=== PATIENT | female | born 1980 | race American Indian/Alaskan Native ===

== ENCOUNTER 2020-03-17 05:48 | Observation (INO) | payer OTHER ==
--- NOTE | 2020-03-13 10:30 | Anesthesia Consultation ---
Anesthesia Consult and Med Hx Date of service: 03/17/20 - Airway Anesthetic Teeth Evaluation: Chipped ROM Head & Neck: Adequate Mental/Hyoid Distance: Adequate Mallampati Class: Class II Intubation Access Assessment: Good - Pre-Operative Health Status ASA Pre-Surgery Classification: ASA1 Proposed Anesthetic Plan: General Nerve Block: TAP if needed - Pulmonary Hx Smoking: No - Cardiovascular System Hx Hypertension: No - Central Nervous System Hx Psychiatric Problems: No - Endocrine Hx Renal Disease: No Hx Liver Disease: No Hx Non-Insulin Dependent Diabetes: No Hx Thyroid Disease: No - Hematic Hx Sickle Cell Disease: No - Other Systems Hx Cancer: No Hx Obesity: No
[2020-03-13 10:45] LABS: Basophils # (Auto) 0.1 K/mm3 (0.0-0.1); Basophils % (Auto) 0.9 % (0.0-1.8); Eosinophils # (Auto) 0.2 K/mm3 (0.0-0.4); Eosinophils % (Auto) 3.1 % (0.0-4.3); Hematocrit 38.3 % (30.3-42.9); Hemoglobin 13.5 gm/dl (10.1-14.3); Lymphocytes # (Auto) 1.7 K/mm3 (1.2-5.4); Lymphocytes % (Auto) 29.3 % (13.4-35.0); Mean Corpuscular HGB Conc 35 % (30-34); Mean Corpuscular Volume 92 fl (79-97); Monocytes # (Auto) 0.4 K/mm3 (0.0-0.8); Monocytes % (Auto) 6.7 % (0.0-7.3); Red Blood Count 4.15 M/mm3 (3.65-5.03); Red Cell Distribution Width 13.9 % (13.2-15.2)
[2020-03-13 10:54] LABS: Platelet Count 227 K/mm3 (140-440)
[2020-03-13 11:34] LABS: BUN/Creatinine Ratio 20; Blood Urea Nitrogen 12 mg/dL (7-17); Hemolysis Index 9
--- NOTE | 2020-03-16 10:25 | History and Physical Report ---
History of Present Illness Date of examination: 03/10/20 Date of admission: 03/17/2020 Chief complaint: fibroids, heavy bleeding, retained IUD History of present illness: Visit Type: Pre-Op CC: Pre op. History of Present Illness: pt presents for pre op visit: LAV H......................................................................Kaylee Dawkins March 10, 2020 9:40 AM Mask, Patient denies fever, cough, shortness of breath and exposure to COVID-19. Pt here for preop for LAVH withBS and IUD removal secondary to fibroids, menorrhagia. All risk/benefits/alternatives were d/w pt and questions were addressed and answered. Consent signed and placed on the chart. I also d/w risk of need for GEORGE. Pt expressed understanding. 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 of genital herpes: no Partner hx. of genital herpes: no Hx of STD: None Active Medications (reviewed today): IBUPROFEN 800 MG ORAL TABLET (IBUPROFEN) 1 po q6 hr prn pain MIRENA () Current Allergies (reviewed today): No known allergies Past Medical History: Reviewed history from 01/13/2020 and no changes required: Fibroids Past Surgical History: Reviewed history from 01/13/2020 and no changes required: negative Negative Past Surgical History Family History Summary: Reviewed history and no changes required: 03/16/2020 General Comments - FH: HTN-mother Dm- mother Social History: Reviewed history from 01/13/2020 and no changes required: Patient is Smoking History: Patient has never smoked. occ etoh, no tobacco, no drugs Risk Factors: Smoked Tobacco Use: Never smoker Smokeless Tobacco Use: Never Drug use: no HIV high-risk behavior: no Alcohol use: no Exercise: yes Seatbelt use: 100 % PAP Smear History: Date of Last PAP Smear: 03/10/2020 Results: 03/2019 Physical Exam Appearance: well developed, well nourished, no acute distress Other Exams Lungs: no rales, rhonchi, or wheezes Heart: S1, S2, no murmur, rub, or gallop Extremities: normal alignment, no joint enlargement, crepitus, masses or tenderness; normal tone and strength Genitourinary Exam Comments: deferred until EUA Past History Past Medical History: other (see hpi) Past Surgical History: no surgical history Social history: no significant social history Medications and Allergies Allergies Allergy/AdvReac Type Severity Reaction Status Date / Time No Known Allergies Allergy Verified 03/13/20 10:37 Home Medications Medication Instructions Recorded Confirmed Last Taken Type No Known Home Medications [No 03/11/20 03/11/20 Unknown History Reported Home Medications] Active Meds: Active Medications Acetaminophen (Acetaminophen 500 Mg Tab) 1,000 mg PO ONCE ONE Stop: 03/17/20 06:01 Celecoxib (Celecoxib 200 Mg Cap) 400 mg PO PREOP NR Stop: 03/19/20 10:59 Gabapentin (Gabapentin 300 Mg Cap) 600 mg PO PREOP NR Stop: 03/19/20 10:59 Lactated Ringer's (Lactated Ringers) 1,000 mls @ 125 mls/hr IV DIRECT CAROLINE Magnesium Oxide (Magnesium Oxide 400 Mg Tab) 400 mg PO ONCE ONE Stop: 03/17/20 06:01 Midazolam HCl (Midazolam 2 Mg/2 Ml Inj) 2 mg IV PREOP NR Stop: 03/17/20 23:59 Review of Systems All systems: negative - Vital Signs Vital signs: Vital Signs Temp Pulse Resp BP Pulse Ox 98.9 F 76 18 144/90 99 03/13/20 09:35 03/13/20 09:35 03/13/20 09:35 03/13/20 09:35 03/13/20 09:35 Temp Pulse Resp BP Pulse Ox 98.9 F 76 18 144/90 99 03/13/20 09:35 03/13/20 09:35 03/13/20 09:35 03/13/20 09:35 03/13/20 09:35 - Physical Exam Cardiovascular: Normal S1, Normal S2 Lungs: Positive: Clear to auscultation, Normal air movement Abdomen: Positive: normal appearance, soft. Negative: distention, tenderness, guarding Genitourinary (Female): Positive: other (deferred until EUA) Results Result Diagrams: 03/13/20 09:45 03/13/20 09:45 All other labs normal. Assessment and Plan - Patient Problems (1) Fibroid Status: Acute Plan to address problem: -admit and prepare for LAVH, Removal of Mirena, and BS -consents signed and placed on the chart -all questions were addressed and answered. (2) Menorrhagia with irregular cycle Status: Acute Plan to address problem: -admit and prepare for LAVH, Removal of Mirena, and BS -consents signed and placed on the chart -all questions were addressed and answered.
[~2020-03-17 05:48] MED LIST: CELECOXIB 200 MG CAP PO NR; GABAPENTIN 300 MG CAP PO NR
[2020-03-17] MEDS ORDERED: ACETAMINOPHEN 500 MG TAB PO ONE (06:00)
[2020-03-17] MEDS ORDERED: MAGNESIUM OXIDE 400 MG TAB PO ONE (06:00)
[2020-03-17] MEDS ORDERED: SCOPOLAMINE TRANSDERMAL PATCH 72 HR TD NR (06:00)
[2020-03-17] MEDS ORDERED: MIDAZOLAM 2 MG/2 ML INJ IV NR (06:00)
[2020-03-17] MEDS ORDERED: ceFAZolin/Water 2 GM/20 ML 2 GM/20 ML SYRINGE IV NR (06:00)
[2020-03-17] MEDS: LACTATED RINGERS 1,000 ML IV SCH ×2 (06:20→23:36)
--- NOTE | 2020-03-17 06:34 | Anesthesia Day of Surgery ---
Anesthesia Day of Surgery - Day of Surgery Patient Examined: Yes Patient H&P Reviewed: Yes Patient is NPO: Yes
[2020-03-17] MEDS ORDERED: MAGNESIUM SULFATE 4 GM/100 ML BAG IV ONE (06:35)
[2020-03-17] MEDS ORDERED: LIDOCAINE (2%) 20 MG/1 ML VIAL 20 ML MDV INFILTRATI ONE (06:35)
[2020-03-17] MEDS ORDERED: MIDAZOLAM 2 MG/2 ML INJ ONE (06:37)
[2020-03-17] MEDS ORDERED: propofoL 200 MG/20 ML VIAL IV ONE (06:37)
[2020-03-17] MEDS ORDERED: KETAMINE/STERILE WATER 50 MG/ML SYRINGE ONE ×2 (06:37→09:22)
[2020-03-17] MEDS ORDERED: dexAMETHasone 20 MG/5 ML VIAL ONE (06:46)
[2020-03-17] MEDS ORDERED: ONDANSETRON 4 MG/2 ML INJ ONE (06:46)
[2020-03-17] MEDS ORDERED: ROCURONIUM 50 MG/5 ML INJ IV ONE ×2 (06:46→09:53)
[2020-03-17] MEDS ORDERED: KETOROLAC 30 MG/1 ML INJ ONE (06:46)
[2020-03-17] MEDS ORDERED: VASOPRESSIN 20 UNIT/1 ML INJ ONE (07:03)
[2020-03-17] MEDS ORDERED: SODIUM CHLORIDE 0.9% 100 ML ONE (07:03)
[2020-03-17] MEDS ORDERED: BUPIVACAINE/PF (0.5%) 5 MG/1 ML 30 ML VIAL INFILTRATI ONE ×2 (07:03→08:22)
[2020-03-17] MEDS ORDERED: METHYLENE BLUE 50 MG/10 ML AMP ONE (07:21)
[2020-03-17] MEDS ORDERED: ONDANSETRON 4 MG/2 ML INJ IV PRN (07:25)
[2020-03-17] MEDS ORDERED: VASOPRESSIN 20 UNIT/1 ML INJ IV ONE (08:22)
[2020-03-17] MEDS ORDERED: SODIUM CHLORIDE 0.9% 100 ML IVPB IV ONE (08:23)
[2020-03-17] MEDS ORDERED: SODIUM CHLORIDE 0.9% IRR 1,500 ML BOTTLE IR ONE (08:24)
[2020-03-17] MEDS ORDERED: SODIUM CHLORIDE 0.9% IRRIG SOLN 2000 ML IR ONE (08:52)
[2020-03-17] MEDS ORDERED: LACTATED RINGERS 1,000 ML ONE (09:09)
[2020-03-17] MEDS ORDERED: LIDOCAINE PF 100 MG/5 ML (CARDIAC SYRINGE) IV ONE (09:21)
[2020-03-17] MEDS ORDERED: ePHEDrine SULFATE 50 MG/1 ML INJ ONE (09:45)
[2020-03-17] MEDS ORDERED: NEOSTIGMINE 10MG/10 ML INJ MDV ONE (10:00)
[2020-03-17] MEDS ORDERED: GLYCOPYRROLATE 0.4 MG/2 ML INJ ONE (10:00)
[2020-03-17] MEDS ORDERED: ACETAMINOPHEN 325 MG TAB PO PRN (11:01)
[2020-03-17] MEDS ORDERED: HYDROcodone/ACETAMINOPHEN 5-325 MG TAB PO PRN (11:04)
--- NOTE | 2020-03-17 11:11 | Operative Report ---
Operative Report Operative Report: Date of procedure: 03/17/2020 Pre-operative diagnosis: Menorrhagia Retained IUD Uterine fibroid Post-operative diagnosis: Same Procedure name(s): Laparoscopic assisted vaginal hysterectomy Bilateral salpingectomy Surgeon: Roseann Graham MD Hi Lo Driver: Dr. Bria Schroeder Anesthesia: General endotracheal anesthesia EBL: 400 mL Urine output: 300 mL of clear urine out at end of procedure Fluids: 1700 mL Findings: Normal fallopian tubes and ovaries bilaterally Mirena device noted to be inside the uterus was removed after the uterus had been removed from the body Degenerating fibroid approximately 9 cm Evidence of adenomyosis Indications: Patient presents with a long history of heavy painful bleeding. Patient also had diagnosis of fibroids. Patient desired definitive therapy. All risks benefits and alternatives were discussed with the patient. Consents were signed and placed on the chart. Procedure: Patient was taken to the operating room where she was placed under general endotracheal anesthesia. She was then prepped and draped in sterile fashion. It was at this point that the medium V care uterine manipulator was placed inside of the uterus after the uterus was sounded to approximately 12 cm. Gee catheter was also placed at this time. Attention was then turned to the umbilicus in which a supraumbilical incision was made. Under direct visualization the 5 mm trocar was placed inside the peritoneum the peritoneum was then insufflated. As at this point that the laparoscopic portion of the procedure was performed. 2 lateral 5 mm ports were also placed under direct visualization. Using the tripolar instrument the upper pedicles were cauterized and transected to the including round ligament with excellent hemostasis noted bilaterally. It was also at this point that bilateral salpingectomy was performed with portions of left and right fallopian tube handed off for pathology. Attention was then turned vaginally. A weighted speculum was placed into the vagina and the cervix was grasped with a single-tooth tenaculum 2. The cervix was then injected circumferentially with Pitressin. The cervix was then circumferentially incised with the scalpel and the bladder dissected off of the pubovesical cervical fascia anteriorly with a sponge stick and Metzenbaum scissors. The same procedure was performed posteriorly and the posterior cul-de-sac was entered into sharply without difficulty. At this point a Devonte Clamp was placed over the uterosacral ligaments on either side. These were then transected and suture ligated with 0 Vicryl. Hemostasis was assured. The cardinal ligaments were then clamped on both sides transected and suture ligated in similar fashion. The uterine arteries were then serially clamped with Devonte clamps transected and suture ligated on both sides. Excellent hemostasis was visualized. After it was clear that the uterus had been completely from all pedicles the uterus was removed vaginally intact with cervix intact. The vaginal cuff angles were closed with figure of 8 stitches of 0 Vicryl on both sides. The peritoneum was incorporated in the stitching of the vaginal cuff. A series of interrupted figure of 8 sutures using 0 Vicryl were used to close the entire vaginal cuff. Excellent hemostasis was noted. The vagina was then irrigated copiously. Attention was then turned laparoscopically at this time. Again all pedicles were noted to be hemostatic. The ureters were identified bilaterally with peristalsis noted bilaterally. Jorge Luis was placed along the vaginal cuff and upper pedicles with excellent hemostasis noted. All instruments were then removed from the abdomen and the vagina. All gas was released from the abdomen. The abdominal incisions were closed using 4-0 Monocryl. All of the abdominal incisions were injected with Marcaine without epi. Patient tolerated the procedure well sponge lap and needle counts were all correct 3 the patient was taken to the recovery room awake and in stable condition.
[2020-03-17] MEDS ORDERED: ACETAMINOPHEN 500 MG TAB PO PRN (11:30)
[2020-03-17] MEDS: HYDROmorphone 1 MG/1 ML INJ IV PRN ×2 (11:42→12:40)
--- NOTE | 2020-03-17 12:21 | Post Anesthesia Evaluation ---
- Post Anesthesia Evaluation Patient Participated: Yes Airway Patent: Yes Stable Respiratory Function: Yes Nausea/Vomiting: No Temp > 96.8F: Yes Pain Manageable: Yes Adequeate Hydration: Yes Anesthesia Complications: No
[2020-03-17] MEDS: ceFAZolin/NS 1 GM/50 ML 1 GM/50 ML BAG IV SCH ×2 (15:51→23:35)
[2020-03-17] MEDS: KETOROLAC 30 MG/1 ML INJ IV PRN (23:36)
[2020-03-18] MEDS: KETOROLAC 30 MG/1 ML INJ IV PRN (05:40)
[2020-03-18] MEDS ORDERED: IBUPROFEN 800 MG TAB PO PRN (06:00)
[2020-03-18 08:04] LABS: Hematocrit 34.4 % (30.3-42.9); Hemoglobin 11.5 gm/dl (10.1-14.3)
--- NOTE | 2020-03-18 12:05 | Progress Note ---
Assessment and Plan - Patient Problems (1) Fibroid Current Visit: No Status: Acute (2) Menorrhagia with irregular cycle Current Visit: No Status: Acute (3) Status post laparoscopic assisted vaginal hysterectomy (LAVH) Current Visit: Yes Status: Acute Plan to address problem: routine post op care d/c home today Subjective - Subjective Date of service: 03/18/20 Principal diagnosis: POD #1 s/p LAVH with BS Interval history: Pt doing well. + toleration of regular diet desires d/c home at this time. H/H stable Patient reports: appetite normal, voiding normally, pain well controlled, flatus, ambulating normally Objective - Vital Signs Latest vital signs: Vital Signs Temp Pulse Resp BP BP Pulse Ox 03/18/20 10:00 18 03/18/20 05:02 98.7 F 67 18 127/72 100 03/18/20 00:42 99.7 F H 73 20 125/69 97 03/17/20 19:47 98.3 F 74 18 132/74 100 03/17/20 16:15 97.7 F 71 20 105/66 03/17/20 13:05 97.2 F L 71 16 97/60 97/60 99 03/17/20 12:45 69 15 106/67 97 03/17/20 12:40 14 03/17/20 12:30 97.4 F L 66 17 107/70 98 03/17/20 12:15 70 18 107/67 97 Intake and Output 03/17/20 03/18/20 03/18/20 22:59 06:59 14:59 Intake Total 730 120 Output Total 1400 1000 600 Balance -670 -880 -600 Intake: IV 50 ANCEF/NS 1 GM/50 ML 1 gm 50 In 50 ml @ 100 mls/hr IV Q8H [facility] Rx#:[id number] Oral 560 Intake, Free Water 120 120 Output: Urine 1400 1000 600 Indwelling Catheter 1400 1000 Void 600 Other: Total, Intake Amount 240 Total, Output Amount 700 1000 600 Voiding Method Toilet # Voids Indwelling Catheter 0 Void 1 - Exam Breasts: Present: normal Cardiovascular: Present: Normal S1, Normal S2 Lungs: Present: Clear to auscultation, Normal air movement Abdomen: Present: normal appearance, soft, guarding, normal bowel sounds. Absent: distention, tenderness Incision: Present: normal, dry, intact (open to air)
[2020-03-18 12:25] VITALS: BP 133/72
--- NOTE | 2020-03-18 12:37 | Post Anesthesia Evaluation ---
- Post Anesthesia Evaluation Patient Participated: Yes Airway Patent: Yes Stable Respiratory Function: Yes Nausea/Vomiting: No Temp > 96.8F: Yes Pain Manageable: Yes Adequeate Hydration: Yes Anesthesia Complications: No Patient on Ventilator: No Other Comments: post op day 1 stsuat post LAVH
--- NOTE | 2020-03-18 12:50 | Discharge Summary ---
Providers - Providers Date of Admission: 03/17/20 11:01 Date of discharge: 03/18/20 Attending physician: DANA MARSHALL Hospitalization Reason for admission: other (LAVH WITH BS) Procedure: other (LAVH WITH BS) Procedure details: SEE OP NOTE Incision: normal, dry, intact Hospital course: Pt admitted for LAVH with BS and IUD removal. She underwent procedure that was not complicated. Pt had routine post op care and will be d/c home today. Post op course was not complicated. Condition at discharge: Good Disposition: [id number] TO HOME OR SELFCARE - Discharge Diagnoses (1) Fibroid Status: Acute (2) Menorrhagia with irregular cycle Status: Acute (3) Status post laparoscopic assisted vaginal hysterectomy (LAVH) Status: Acute Plan - Discharge Medications Prescriptions: Ibuprofen [Motrin 800 MG tab] 800 mg PO Q8HR PRN #30 tablet PRN Reason: Pain, Moderate (4-6) oxyCODONE /ACETAMINOPHEN [Percocet 5/325] 1 tab PO Q4HR #30 tab - Provider Discharge Summary Activity: routine, no sex for 6 weeks, no heavy lifting 4 weeks, no strenuous exercise Diet: routine Instructions: routine Additional instructions: [] Smoking cessation referral if applicable(refer to patient education folder for contact #) [] Refer to [facility] Booklet Call your doctor immediately for: * Fever > 100.5 * Heavy vaginal bleeding ( >1 pad per hour) * Severe persistent headache * Shortness of breath * Reddened, hot, painful area to leg or breast * Drainage or odor from incision. * Keep incision clean and dry at all times and follow doctor's instructions regarding bathing/showering - Follow up plan Follow up: JADEN CHAVIS [Other] - 7 Days DANA MARSHALL MD [Staff Physician] - 7 Days Forms: [facility] Discharge Summary
== END 2020-03-18 14:00 | disposition home or self-care (01) ==
LOC: OR 05:48 → OB 11:01
PROVIDERS: ADMIT Obstetrics & Gynecology; ATTEND Obstetrics & Gynecology
DX: D25.9 Leiomyoma of uterus, unspecified (principal); N92.1 Excessive and frequent menstruation with irregular cycle; Z98.890 Other specified postprocedural states
CPT/HCPCS: 36415; 58554; 80048; 84703; 85014; 85018; 85025; 86850; 86900; 86901; 88302; 88307; 96365; 96366; 96375; 96376; A4217; G0378; J0690; J1100; J1170; J1885; J2001; J2250; J2405; J2704; J2710; J3475; J3490; J7120; Q9968